=== PATIENT | male | born 1970 | race Caucasian/White ===

== ENCOUNTER → 2018-04-20 | Outpatient (CLI) | payer BC ==
[~2018-04-20] MED LIST: ASPIR-LOW81 MG PO; GLUCOPHAGE1000 MG PO; INSULIN 70/3100 U/ML SC; LIPITOR 10MG10 MG PO; LISINOPRIL2.5 MG PO; LOPID 600M600 MG/TAB PO; METFORMIN HCL1000 MG PO; NORCO 325 MG-51 TAB PO; NOVOLOG MIX 70/10 ML SQ; OMEGA 31000 MG PO; VITAMIN D 50,1.25 MG PO; ZESTRIL2.5 MG PO; [UNRECOGNIZED DRUG - OTHER]
== END ==
LOC: COL.RAD 15:44
DX: K80.20 Calculus of gallbladder without cholecystitis without obstruction (principal); R31.9 Hematuria, unspecified